=== PATIENT | female | born 1935 | race Hispanic/Latino ===

== ENCOUNTER 2019-11-08 13:24 | Emergency (ER) | payer MEDICARE ==
--- NOTE | 2019-11-08 13:55 | Event Note ---
Date: 11/08/19 Medical screening examination: 84-year-old female brought to the hospital by EMS status post reported mechanical fall. GCS 15. Clinically sober at this time. Check CT scan of the brain and cervical spine, detailed head to toe exam, reassess. Patient declining pain medication at this time. Vital Signs 11/08/19 13:44 Temperature 97.5 F L Pulse Rate 71 Respiratory 20 Rate Blood Pressure 182/78 [Left] O2 Sat by Pulse 95 Oximetry
[2019-11-08] MEDS ORDERED: TETANUS,DIPH,PERTUSS(ACELL) VACCINE 0.5 ML SYRINGE IM ONE (14:36)
--- NOTE | 2019-11-08 14:40 | Emergency Department Report ---
HPI - General Chief Complaint: Head Injury Time Seen by Provider: 11/08/19 14:09 - HPI HPI: This is a pleasant 84-year-old female presents to the emergency department via EMS after having a ground-level fall while going to pay for her lunch at a cafeteria. The patient walks with a cane and says that it slipped out from underneath her and the patient fell forward. The patient was holding her debit card at the time. The patient has a laceration just above the right eyebrow. She is unsure whether or not this was caused from the fall or the debit card in her hand. She denies any loss of consciousness. At this time she only complains of mild pain to the area of her laceration and some mild right knee pain. She has a past medical history of previous TIA, hypertension. The patient also has a history of a previous fall with a subsequent traumatic brain bleed. At the time of my examination the patient is awake, alert and oriented. Unknown last tetanus vaccination. ED Past Medical Hx - Past Medical History Previous Medical History?: Yes Hx Hypertension: Yes Hx CVA: Yes (TIA) - Surgical History Past Surgical History?: Yes - Social History Smoking Status: Current Every Day Smoker Substance Use Type: None ED Review of Systems ROS: Stated complaint: FALL/LAC Other details as noted in HPI Comment: All other systems reviewed and negative Constitutional: denies: chills, fever Eyes: denies: eye pain, vision change ENT: denies: ear pain, throat pain Respiratory: denies: cough, shortness of breath Cardiovascular: denies: chest pain, palpitations Gastrointestinal: denies: abdominal pain, vomiting Genitourinary: denies: dysuria, discharge Musculoskeletal: arthralgia. denies: back pain Skin: denies: rash, lesions Neurological: headache. denies: weakness, numbness Physical Exam - Physical Exam Vital Signs: Vital Signs 11/08/19 13:44 Temperature 97.5 F L Pulse Rate 71 Respiratory 20 Rate Blood Pressure 182/78 [Left] O2 Sat by Pulse 95 Oximetry Physical Exam: GENERAL: The patient is well-developed well-nourished. HENT: Normocephalic. Atraumatic. Patient has moist mucous membranes. EYES: Extraocular motions are intact. Pupils equal reactive to light bilaterally. NECK: Supple. Trachea is midline. CHEST/LUNGS: Clear to auscultation. There is no respiratory distress noted. HEART/CARDIOVASCULAR: Regular. There is no tachycardia. ABDOMEN: Abdomen is soft, nontender. Patient has normal bowel sounds. There is no abdominal distention. SKIN: Skin is warm and dry. There is a superficial, linear, 3 cm laceration just above the right eyebrow. NEURO: The patient is awake, alert, and oriented. The patient is cooperative. The patient has no focal neurologic deficits. Normal speech. Cranial nerves II through XII grossly intact. MUSCULOSKELETAL: Very mild right knee tenderness to palpation. Negative anterior and posterior drawer test. No laxity with valgus or varus stress. There is no limitation range of motion. ED Course Vital Signs 11/08/19 13:44 Temperature 97.5 F L Pulse Rate 71 Respiratory 20 Rate Blood Pressure 182/78 [Left] O2 Sat by Pulse 95 Oximetry - Laceration /Wound Repair Right Face Wound Location: face (right forehead just above eyebrow) Wound Length (cm): 3 Wound's Depth, Shape: superficial, linear Wound Explored: no foreign body removed Irrigated w/ Saline (ccs): 20 Anesthesia: Lidocaine w/ Epi Volume Anesthetic (ccs): 4 Wound Repaired With: sutures Suture Size/Type: 5:0 Number of Sutures: 7 Layer Closure?: No Sterile Dressing Applied?: Yes Progress: estimate blood loss < 5 cc. no obvious complications from the procedure ED Medical Decision Making - Radiology Data Radiology results: report reviewed, image reviewed interpreted by me: X-ray of the right knee does not show any fracture, dislocation, or any acute process. CT HEAD WITHOUT CONTRAST INDICATION / CLINICAL INFORMATION: closed head injury. TECHNIQUE: All CT scans at this location are performed using CT dose reduction for ALARA by means of automated exposure control. COMPARISON: None available. FINDINGS: HEMORRHAGE: No evidence of intracranial hemorrhage or extra-axial fluid collection. EXTRA-AXIAL SPACES: Cortical sulci, sylvian fissures and basilar cisterns are normal for age. VENTRICULAR SYSTEM: The ventricular system is of normal size and configuration. CEREBRAL PARENCHYMA: Bilateral anterior limb internal capsule hypodensities consistent with chronic infarcts. No suspicious hypodensity. MIDLINE SHIFT OR HERNIATION: There is no mass effect. CEREBELLUM / BRAINSTEM: Brainstem and cerebellum have an unremarkable appearance. INTRACRANIAL VESSELS:No abnormalities are identified on this noncontrast head CT. ORBITS: visualized portions of the orbits have an unremarkable appearance. SOFT TISSUES of HEAD: A right frontal scalp hematoma. CALVARIUM: Evaluation of bone windows reveals no abnormalities. PARANASAL SINUSES / MASTOID AIR CELLS: Paranasal sinuses are free from inflammatory mucosal disease. Mastoid air cells are normally pneumatized. ADDITIONAL FINDINGS: None. IMPRESSION: 1. No acute intracranial abnormality. 2. Right frontal scalp hematoma. 3. 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 CT CERVICAL SPINE WITHOUT CONTRAST INDICATION: fell hit head. TECHNIQUE: Axial imaging performed through the cervical spine without the use of contrast. Sagittal and coronal reconstructed images were also reviewed. All CT scans at this location are performed using CT dose reduction for ALARA by means of automated exposure control. COMPARISON: None FINDINGS: Alignment: Spinal alignment is normal. Bones: There is no acute osseous abnormality. No fracture. Mild multilevel discogenic DJD is present. This is worse at C5-6. Soft tissues: No acute or significant incidental soft tissue abnormality. IMPRESSION: No acute abnormality. - Medical Decision Making This patient presents with a laceration above her right eyebrow and some mild right knee pain after a ground-level fall. The patient has been awake, alert, oriented throughout her ED course. There are no focal, motor or sensory deficits and her cranial nerves are intact. CT scan of the head without contrast does not show any acute bleed, shift, mass, ischemia, or any other acute process. CT of the cervical spine also does not show any fracture, subluxation or any acute process. X-ray of the right knee does not show any fracture, dislocation, or any acute process. The laceration was closed with 7 simple interrupted sutures with good approximation and cessation of the bleeding. She will follow-up with her primary care physician. We discussed suture and wound care. She will return to the ER with any signs or symptoms of infection, worsening of her symptoms, or with any acute distress. - Differential Diagnosis Contusion, hematoma, concussion, brain bleed Critical Care Time: No Critical care attestation.: If time is entered above; I have spent that time in minutes in the direct care of this critically ill patient, excluding procedure time. ED Disposition Clinical Impression: Fall from ground level Laceration of forehead Qualifiers: Encounter type: initial encounter Qualified Code(s): S01.81XA - Laceration without foreign body of other part of head, initial encounter Contusion of right knee Qualifiers: Encounter type: initial encounter Qualified Code(s): S80.01XA - Contusion of right knee, initial encounter Hypertension Qualifiers: Hypertension type: essential hypertension Qualified Code(s): I10 - Essential (primary) hypertension Disposition: TO HOME OR SELFCARE Is pt being admited?: No Condition: Stable Instructions: Suture Care (ED), Laceration (ED), Minor Head Injury (ED), Hypertension (ED) Additional Instructions: Please follow-up with your primary care physician in the next few days. The sutures will need to be removed in about 7 days and this can be done at a primary care office, urgent care, or in the emergency department. Please make sure you are seen immediately with any signs/symptoms of infection such as increased pain, increased swelling, surrounding redness, fever, or discharge of pus. The area can be cleaned with soap and water and then should be kept dry. Make sure to take your blood pressure medication. Try and stay away from foods that are high in salt and caffeinated products. Keep a blood pressure log. Return to the emergency department with any worsening of your symptoms or with any acute distress. Referrals: PRIMARY CARE [Primary Care Provider] - 3-5 Days Time of Disposition: 15:14
[2019-11-08] MEDS ORDERED: LIDOCAINE (1%) 10 MG/1 ML VIAL 20 ML MDV ONE (14:42)
[2019-11-08] MEDS ORDERED: LIDOCAINE 1%/EPINEPHRINE 1:100,000 VIAL (20 ML) INFILTRATI NR (15:00)
--- NOTE | 2019-11-08 15:03 | XRay Report ---
RIGHT KNEE 2 VIEWS INDICATION: right knee pain. COMPARISON: None. IMPRESSION: Moderate tricompartmental osteoarthritic changes are identified. No fracture, bone lesio n or osteochondral defect is detected. No significant joint effusion. Signer Name: Oscar Garvin Jr, MD Signed: 11/08/2019 2:59 PM Workstation Name: [id number]
--- NOTE | 2019-11-08 15:04 | Cat Scan Report ---
CT HEAD WITHOUT CONTRAST INDICATION / CLINICAL INFORMATION: closed head injury. TECHNIQUE: All CT scans at this location are performed using CT dose reduction for ALARA by means of automated e xposure control. COMPARISON: None available. FINDINGS: HEMORRHAGE: No evidence of intracranial hemorrhage or extra-axial fluid collection. EXTRA-AXIAL SPACES: Cortical sulci, sylvian fissures and basilar cisterns are normal for age. VENTRICULAR SYSTEM: The ventricular system is of normal size and configuration. CEREBRAL PARENCHYMA: Bilateral anterior limb internal capsule hypodensities consistent with chronic i nfarcts. No suspicious hypodensity. MIDLINE SHIFT OR HERNIATION: There is no mass effect. CEREBELLUM / BRAINSTEM: Brainstem and cerebellum have an unremarkable appearance. INTRACRANIAL VESSELS:No abnormalities are identified on this noncontrast head CT. ORBITS: visualized portions of the orbits have an unremarkable appearance. SOFT TISSUES of HEAD: A right frontal scalp hematoma. CALVARIUM: Evaluation of bone windows reveals no abnormalities. PARANASAL SINUSES / MASTOID AIR CELLS: Paranasal sinuses are free from inflammatory mucosal disease. Mastoid air cells are normally pneumatized. ADDITIONAL FINDINGS: None. IMPRESSION: 1. No acute intracranial abnormality. 2. Right frontal scalp hematoma. 3. 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 Signer Name: Tevin Lieberman MD Signed: 11/08/2019 2:59 PM Workstation Name: [id number]
--- NOTE | 2019-11-08 15:08 | Cat Scan Report ---
CT CERVICAL SPINE WITHOUT CONTRAST INDICATION: fell hit head. TECHNIQUE: Axial imaging performed through the cervical spine without the use of contrast. Sagittal and coronal reconstructed images were also reviewed. All CT scans at this location are performed us ing CT dose reduction for ALARA by means of automated exposure control. COMPARISON: None FINDINGS: Alignment: Spinal alignment is normal. Bones: There is no acute osseous abnormality. No fracture. Mild multilevel discogenic DJD is present . This is worse at C5-6. Soft tissues: No acute or significant incidental soft tissue abnormality. IMPRESSION: No acute abnormality. Signer Name: Tevin Lieberman MD Signed: 11/08/2019 3:04 PM Workstation Name: [id number]
[2019-11-08 16:13] VITALS: BP 161/80
== END 2019-11-08 16:12 | disposition home or self-care (01) ==
LOC: ED 13:24
DX: S01.81XA Laceration without foreign body of other part of head, initial encounter (principal); S80.01XA Contusion of right knee, initial encounter; I10 Essential (primary) hypertension; F17.200 Nicotine dependence, unspecified, uncomplicated; Z86.73 Personal history of transient ischemic attack (TIA), and cerebral infarction without residual deficits; Z88.2 Allergy status to sulfonamides; W01.0XXA Fall on same level from slipping, tripping and stumbling without subsequent striking against object, initial encounter; Y93.01 Activity, walking, marching and hiking; Y92.511 Restaurant or cafe as the place of occurrence of the external cause; Y99.8 Other external cause status
CPT/HCPCS: 70450; 72125; 90471; 90715

== ENCOUNTER 2019-11-15 14:26 | Emergency (ER) | payer MEDICARE ==
[2019-11-15 14:37] VITALS: BP 187/65
--- NOTE | 2019-11-15 14:56 | Emergency Department Report ---
Suture/Staple Removal - HPI Chief Complaint: Laceration/Recheck/Suture Stated Complaint: STICHES REMOVAL Time Seen by Provider: 11/15/19 14:43 When Sutures or Miguel Angel Placed: 8-10 Days Ago Wound Location: right eyebrow ED Review of Systems ROS: Stated complaint: STICHES REMOVAL Other details as noted in HPI Comment: All other systems reviewed and negative ED Past Medical Hx - Past Medical History Hx Hypertension: Yes Hx CVA: Yes (TIA) - Social History Smoking Status: Never Smoker Substance Use Type: None Suture Removal Exam - Exam General: Vital signs noted. No distress. Alert and acting appropriately. Wound: No Pathologic Erythema, No Tenderness, No Drainage, No Pus, No Wound Dehiscence Other Systems: All other systems reviewed and are unremarkable. ED Course Vital Signs 11/15/19 14:34 Temperature 97.7 F Pulse Rate 69 Respiratory 20 Rate Blood Pressure 187/65 O2 Sat by Pulse 94 Oximetry ED Recheck MDM - Medical Decision Making 84 y o female presents for suture removal sutures removed with no problems clean lac no problems during ED visit vital signs are normal, no acute distress Critical care attestation.: If time is entered above; I have spent that time in minutes in the direct care of this critically ill patient, excluding procedure time. ED Disposition Clinical Impression: Abrasion, Visit for suture removal Disposition: DC-01 TO HOME OR SELFCARE Is pt being admited?: No Does the pt Need Aspirin: No Condition: Stable Instructions: Suture Removal (ED) Forms: Work/School Release Form(ED) Time of Disposition: 15:02
== END 2019-11-15 15:05 | disposition home or self-care (01) ==
LOC: ED 14:26
DX: Z48.02 Encounter for removal of sutures (principal)